=== PATIENT | female | born 1945 | race Asian ===

== ENCOUNTER 2019-11-24 02:58 | Inpatient (IN) | payer OTHER ==
[~2019-11-24] VITALS: Ht 144.8 cm; Wt 59.8 kg
--- NOTE | 2019-11-24 03:17 | NUR ---
PT BIB [facility] FOR "DIZZINESS". PT IS ORIENTED X3. PT IS A POOR HISTORIAN. RESTING ON [place], CALL LIGHT ON LAP, NAD, RESP WNL, P/W/D, FCS no SOB, WCTM. JC MCDOWELL AT FOR EVAL AND TO DISCUSS POC.
--- NOTE | 2019-11-24 03:20 | NUR ---
PT AMBULATED WITH A SMOOTH AND STEADY GAIT TO AND FROM RESTROOM. UA COLLECTED.
--- NOTE | 2019-11-24 03:20 | NUR ---
GIVEN WARM BLANKET FOR COMFORT, WCTM.
--- NOTE | 2019-11-24 03:37 | NUR ---
UA SENT TO LAB VIA TUBE
[2019-11-24 03:43] LABS: MICROSCOPIC AUTO
[2019-11-24 03:44] LABS: BASOPHILS # (AUTO) 0.02 x10^3/uL (0-0.1); BASOPHILS % (AUTO) 0 % (0-1); EOSINOPHILS % (AUTO) 12 % (1-7); LYMPHOCYTES # (AUTO) 0.98 x10^3/uL (1-3.4); LYMPHOCYTES % (AUTO) 13 % (22-44); MD NO; MEAN CORPUSCULAR HEMOGLOBIN 28.3 pg (27.0-34.8); MEAN CORPUSCULAR HGB CONC 33.8 g/dL (32.4-35.8); MEAN CORPUSCULAR VOLUME 83.9 fL (80-100); MEAN PLATELET VOLUME 6.9 fL (7.4-10.4); MONOCYTES # (AUTO) 0.47 x10^3/uL (0.2-0.8); MONOCYTES % (AUTO) 6 % (2-9); NEUTROPHILS # (AUTO) 5.22 x10^3/uL (1.8-6.8); NEUTROPHILS % (AUTO) 69 % (42-75); PLATELET COUNT 337 x10^3/uL (130-400); RED BLOOD COUNT 4.01 x10^6/uL (3.82-5.3); RED CELL DISTRIBUTION WIDTH 12.1 % (9.6-15.2)
[2019-11-24 03:57] LABS: ALANINE AMINOTRANSFERASE 41 U/L (12-78); ALBUMIN 3.5 g/dL (3.4-5.0); ANION GAP 7 mmol/L (5-15); CALCIUM 9.4 mg/dL (8.5-10.1); CHLORIDE 106 mmol/L (98-107); CREATININE 2.46 mg/dL (0.55-1.02)
[2019-11-24 04:01] LABS: ALKALINE PHOSPHATASE 95 U/L (45-117); BILIRUBIN,TOTAL 0.3 mg/dL (0.2-1.0); TOTAL PROTEIN 9.1 g/dL (6.4-8.2); TROPONIN I < 0.015 ng/mL (0.000-0.045)
--- NOTE | 2019-11-24 04:18 | NUR ---
AT BS. PT RESTING IN [place], NAD, RESP WNL, P/W/D, LIGHTS DIMMED FOR COMFORT, WCTM
[2019-11-24] MEDS ORDERED: SODIUM CHLORIDE FLUSH 10ML SYR IVF ONE (04:30)
[2019-11-24] MEDS ORDERED: SODIUM CHLORIDE 0.9% 1,000ML IVBOLUS ONE (04:30)
[2019-11-24] MEDS ORDERED: TRIA1CAP3 PO (04:30)
[2019-11-24] MEDS ORDERED: LOSA1TAB22 PO (04:30)
[2019-11-24] MEDS ORDERED: DONE5TAB7 PO (04:30)
[2019-11-24] MEDS ORDERED: AMLO10TA8 PO (04:30)
--- NOTE | 2019-11-24 04:37 | NUR ---
KIM HERNANDEZ AT FOR EVAL.
[2019-11-24] MEDS ORDERED: SODIUM CHLORIDE 0.9% 1,000 ML IV SCH (04:41)
--- NOTE | 2019-11-24 04:45 | NUR ---
PT AMBULATED WITH A SMOOTH AND STEADY GAIT TO AND FROM RESTROOM, NAD, RESP WNL, P/W/D. CALL LIGHT ON LAP. FCS no SOB. WCTM
[2019-11-24] MEDS ORDERED: ONDANSETRON 2MG/ML, 2ML IVPush PRN (05:00)
--- NOTE | 2019-11-24 05:40 | NUR ---
PT AMBULATED WITH A SMOOTH AND STEADY GAIT TO AND FROM RESTROOM, MAEx4 NAD, RESP WNL, P/W/D. CALL LIGHT ON LAP. FCS no SOB. AT BS. LIGHTS DIMMED FOR COMFORT. WCTM. WAITING FOR ADMIT BED.
--- NOTE | 2019-11-24 06:01 | NUR ---
Report called to [facility]. pt rtg up to room. NAD, P/W/D, RESP WNL. WCTM until transfer
--- NOTE | 2019-11-24 06:07 | NUR ---
nereyda Gayle [facility] phone number [phone]
[2019-11-24 06:37] VITALS: BP 129/72
[2019-11-24 07:59] VITALS: BP 128/74
[2019-11-24] MEDS: AMLODIPINE 10 MG TAB PO SCH (09:58)
[2019-11-24 13:18] VITALS: BP 130/73
[2019-11-24 18:06] LABS: ANION GAP 7 mmol/L (5-15); CALCIUM 9.1 mg/dL (8.5-10.1); CHLORIDE 114 mmol/L (98-107); CREATININE 1.92 mg/dL (0.55-1.02)
[2019-11-24 19:38] VITALS: BP 123/69
[2019-11-24] MEDS ORDERED: DONEPEZIL 5 MG TABLET PO SCH (21:00)
[2019-11-25 01:19] VITALS: BP 140/83
[2019-11-25] MEDS ORDERED: SODIUM CHLORIDE 0.9% 1,000 ML IV SCH (04:41)
[2019-11-25 04:57] LABS: BASOPHILS # (AUTO) 0.07 x10^3/uL (0-0.1); BASOPHILS % (AUTO) 1 % (0-1); EOSINOPHILS # (AUTO) 0.82 x10^3/uL (0-0.4); EOSINOPHILS % (AUTO) 14 % (1-7); LYMPHOCYTES # (AUTO) 1.36 x10^3/uL (1-3.4); LYMPHOCYTES % (AUTO) 24 % (22-44); MD NO; MEAN CORPUSCULAR HEMOGLOBIN 28.1 pg (27.0-34.8); MEAN CORPUSCULAR HGB CONC 33.3 g/dL (32.4-35.8); MEAN CORPUSCULAR VOLUME 84.5 fL (80-100); MONOCYTES # (AUTO) 0.49 x10^3/uL (0.2-0.8); MONOCYTES % (AUTO) 9 % (2-9); NEUTROPHILS # (AUTO) 3.03 x10^3/uL (1.8-6.8); NEUTROPHILS % (AUTO) 53 % (42-75); PLATELET COUNT 281 x10^3/uL (130-400); RED BLOOD COUNT 3.48 x10^6/uL (3.82-5.3); RED CELL DISTRIBUTION WIDTH 12.4 % (9.6-15.2)
[2019-11-25 05:07] LABS: ANION GAP 9 mmol/L (5-15); CALCIUM 8.7 mg/dL (8.5-10.1); CHLORIDE 114 mmol/L (98-107)
[2019-11-25 05:08] LABS: CREATININE 1.79 mg/dL (0.55-1.02)
[2019-11-25 07:51] VITALS: BP 152/79
[2019-11-25] MEDS: AMLODIPINE 10 MG TAB PO SCH (08:26)
[2019-11-25 10:34] VITALS: BP 102/69
[2019-11-25 10:35] VITALS: BP 148/79
[2019-11-25 10:36] VITALS: BP 165/85
[2019-11-25 13:25] VITALS: BP 146/70
[2019-11-25] MEDS ORDERED: LOSARTAN 50MG TABLET PO SCH (14:30)
[2019-11-25] MEDS ORDERED: LOSA50TA2 PO (14:34)
[2019-11-26] MEDS ORDERED: LOSARTAN 50MG TABLET PO SCH (09:00)
== END 2019-11-25 16:23 | disposition home or self-care (01) | DRG 682 ==
LOC: ED 05:04 → EDIP 05:29 → 4EST 06:10
PROVIDERS: ADMIT Internal Medicine; ATTEND Hospitalist
DX: N17.9 Acute kidney failure, unspecified (principal); G92 Toxic encephalopathy; E86.0 Dehydration; F03.90 Unspecified dementia, unspecified severity, without behavioral disturbance, psychotic disturbance, mood disturbance, and anxiety; I10 Essential (primary) hypertension
CPT/HCPCS: 36415; 70450; 70551; 71045; 80048; 80053; 80307; 81001; 82550; 82607; 84484; 85025; 87077; 87086; 87186; 93005; 93306; 99285; G0378; J7030